=== PATIENT | female | born 1940 | race Caucasian/White ===

== ENCOUNTER 2016-12-08 13:33 | Inpatient (IN) | payer MEDICARE, OTHER ==
[~2016-12-08] VITALS: Ht 152.4 cm; Wt 67.8 kg
[2016-12-08 13:46] VITALS: BP 97/59; PULSE 98; RESP 14; O2SAT 94
[2016-12-08] MEDS ORDERED: 0.9% Sodium Chloride 1,000 ML IV ONE ×3 (14:24→20:00)
--- NOTE | 2016-12-08 14:27 | ED.REPORT ---
HPI-General Illness Date of Service Dec 08, 2016 ED Provider: History of Present Illness: 76-year-old female here for multiple medical complaints and a complex medical history. 3 days ago she ate a hamburger and then had lower abdominal pain after that. One day of vomiting and diarrhea. That is gone and is only nauseous now. Is able to tolerate some by mouth. She is also more confused, weak than usual. She was hardly able to walk earlier today. She has been dizzy. She cannot actually tell me what brought her in today, she is losing her words, she is forgetful. She has no reliable historian with her to verify this was new or not. She denies headaches, chest pain, shortness of breath, palpitations. Denies history of heart attack, strokes. She flew in from [place] 3 weeks ago and leaves in 3 days. She has had palpable fever. History of kidney failure about 1.5 yrs ago. Nursing Notes Stated Complaint: DIZZY,WEAK Chief Complaint: General Complaint Nursing Notes Reviewed: Yes Allergies: Coded Allergies: ibuprofen (Verified Allergy, Mild, rash, 12/08/16) Scheduled Atorvastatin Calcium (Atorvastatin Calcium) 10 Mg Tablet 10 MG PO HS Cephalexin (Cephalexin) 250 Mg Capsule 250 MG PO HS Diltiazem ER (Diltiazem ER) 360 Mg Capsule.er 360 MG PO QAM Donepezil (Donepezil) 10 Mg Tablet 10 MG PO HS Esomeprazole Magnesium (Esomeprazole Magnesium) 40 Mg Capsule.dr 40 MG PO QAM Gabapentin (Gabapentin) 600 Mg Tablet 600 MG PO Bid to TID Mirabegron ER (Myrbetriq) 50 Mg Tablet 50 MG PO HS Pramipexole Dihydrochloride (Pramipexole Dihydrochloride) 0.5 Mg Tablet 0.5 MG PO HS Prednisone (PredniSONE) 10 Mg Tablet 5 MG PO DAILYWM Trazodone (Trazodone) 50 Mg Tablet 50 MG PO HS Valsartan (Valsartan) 160 Mg Tablet 160 MG PO QAM Venlafaxine ER (Venlafaxine ER) 75 Mg Cap.er.24h 75 MG PO HS Scheduled PRN Cyclosporine (Restasis) 1 Each Droperette 1 DROP BOTH_EYES BID PRN PRN DRY EYES Loperamide (Loperamide) 2 Mg Capsule 2 MG PO QID PRN PRN For Diarrhea or Loose Stool Tramadol (Tramadol) 50 Mg Tablet 50 MG PO BID to TID PRN PRN For Pain General Time Seen by MD: 14:06 Chief Complaint Abdominal pain, Contusion, Diarrhea, Fever, Multip medical complaints, Not feeling well, Vomiting Hx Obtained From: Patient Arrived By: Walk-in Sudden in Onset?: Yes Onset Occurred: 3 days ago Symptom Duration: Intermittent Location: : Abdomen Severity: Current: Moderate Severity: Maximum: Moderate Recent Healthcare: No recent doctor visit Similar Sx Previous: No Past Medical History Past Medical History Notes: HTN, dementia, arthritis, insomnia. UTI Review of Systems Full Review of Systems Constitutional: Reports: Fatigue, Fever, Malaise, Weakness - generalized Eyes: Denies: Blurred bilateral Respiratory: Denies: Dyspnea on exertion, Non-productive cough, Pleuritic pain Cardiovascular: Denies: Chest pain, Dyspnea on exertion, Edema GI: Reports: Abdominal pain, Anorexia, Diarrhea, Nausea, Vomiting Female: Denies: Dysuria, Flank pain Musculoskeletal: Denies: Back pain, Extremity pain Neurologic: Reports: Dizziness, Problem walking, Weakness Complete sys rev & neg: except as marked. Physical Exam Vital Signs Vital Signs Date Time Temp Pulse Resp B/P Pulse Ox O2 Delivery O2 Flow Rate FiO2 12/08/16 18:35 39.5 119 21 108/58 95 Nasal Cannula 2 12/08/16 16:31 37.8 112 28 135/64 92 Room Air 12/08/16 13:46 37.6 98 14 97/59 94 Room Air Initial VS: Reviewed, Vital signs normal General/Constitutional: Awake, Alert, Well appearing Frequently forgets words, could not tell me why she is here today. Head / Eyes: Normocephalic, PERRL, EOMI, No periorbital swelling, No photophobia Right-sided nystagmus ENT: Airway patent, Mucous membranes moist, Pharynx NL Neck: Supple, No meningismus, Full range of motion, No swelling, Non-tender, No masses Respiratory / Chest: Breath sounds NL, No respiratory distress, No rales, No rhonchi, No wheezing Cardiovascular: Heart rate NL, Regular rhythm, Heart sounds NL, Cap refill not delayed, Peripheral circulation NL Abdomen: Atraumatic, Soft, No rebound, BS normoactive Tenderness/Guarding/Rebound: Positive: Tender LLQ... (Moderate), Tender RLQ... (Moderate), Tender periumbilical, Tender suprapubic Lower abdomen mildly distended. Skin: Color NL, Warm, Dry, Turgor NL Interpretation & Diagnostics Lab Results Interpretation Result Diagram: 12/08/16 1404 12/08/16 1404 Test 12/08/16 14:04 12/08/16 16:23 12/08/16 16:52 12/08/16 20:15 White Blood Count 34.7th/mm3 (3.8-10.1) Red Blood Count 3.88mil/mm3 (3.90-5.20) Hemoglobin 11.8g/dL (12.0-15.6) Hematocrit 35.5% (35.0-46.0) Mean Corpuscular Volume 91.5fL (81-100) Mean Corpuscular Hemoglobin 30.4pg (27.0-35.0) Mean Corpuscular Hemoglobin Concent 33.2% (32.0-37.0) Red Cell Distribution Width 12.7% (12.3-15.4) Platelet Count 294bil/L (150-400) Neutrophils (%) (Auto) 85% (40-74) Lymphocytes (%) (Auto) 7% (14-46) Monocytes (%) (Auto) 3% (4-12) Eosinophils (%) (Auto) 0% (0-5) Basophils (%) (Auto) 0% (0-3) Band Neutrophils % 5% (1-5) Sodium Level 128mEq/L (134-144) Potassium Level 4.5mEq/L (3.5-5.2) Chloride Level 89mEq/L (97-108) Carbon Dioxide Level 23mmol/L (18-29) Blood Urea Nitrogen 33mg/dL (8-27) Creatinine 2.25mg/dL (0.57-1.00) Estimat Glomerular Filtration Rate 30mL/min (>59) Glucose Level 113mg/dL (60-99) Calcium Level 8.4mg/dL (8.5-10.1) Total Bilirubin 0.6mg/dL (0.0-1.2) Aspartate Amino Transf (AST/SGOT) 25U/L (0-50) Alanine Aminotransferase (ALT/SGPT) 13U/L (0-32) Alkaline Phosphatase 74U/L (25-165) Troponin T < 0.010ug/L (0.0-0.011) Total Protein 6.6g/dL (6.4-8.4) Albumin 3.3g/dL (3.4-5.0) Lactic Acid Level 2.0mmol/L (0.4-2.0) Urine Color Yellow (YELLOW) Urine Appearance Clear (CLEAR,HAZY) Urine pH 5.5 (5.0-8.0) Urine Specific [place] 1.025 (1.003-1.035) Urine Protein 30mg/dL (NEG,TRACE) Urine Glucose (UA) Negativemg/dL (NEGATIVE) Urine Ketones Negativemg/dL (NEGATIVE) Urine Occult Blood Trace (NEGATIVE) Urine Nitrite Negative (NEGATIVE) Urine Bilirubin Negative (NEGATIVE) Urine Urobilinogen Normalmg/dL (NORMAL) Urine Leukocyte Esterase Negative (NEGATIVE) Urine RBC 0-2/hpf (0-2) Urine WBC 0-5/hpf (0-5) Urine Epithelial Cells Few/hpf (NONE-MOD) Urine Crystals None seen (NONE SEEN) Urine Bacteria Few/hpf (NONE-FEW) Urine Hyaline Casts None/lpf (NONE) Urine Granular Casts None seen (NONE SEEN) Urine Waxy Casts None seen (NONE SEEN) Urine Red Blood Cell Casts None seen (NONE SEEN) Urine White Blood Cell Casts None seen (NONE SEEN) Urine Mucus None seen (None Seen) Urine Trichomonas None seen (NONE SEEN) Urine Yeast None (NONE SEEN) Urinalysis Comment None Urine Culture Reflexed Not indicated Hold Purple Top Tube Received (Received) Hold [place] Top Tube Received (Received) X-Ray Interpretation Xray Interpretation: PROCEDURE: X-RAY CHEST ONE VIEW, PORTABLE ([id number]) INDICATIONS: altered mental status TECHNIQUE: One view of the chest was acquired. COMPARISON: None. FINDINGS: Surgical changes and devices: None. Lungs and pleura: No pleural effusions or pneumothorax. Lungs are clear. Mediastinum: Mediastinal contours appear normal. Heart size is normal. There appears to be aortic atherosclerosis. Bones and chest wall: No suspicious bony lesions. There is calcific tendinitis of the right shoulder. Overlying soft tissues appear unremarkable. IMPRESSION: Negative chest. No acute cardiopulmonary process is evident. CT Head Interpretation PROCEDURE: CT BRAIN WITHOUT CONTRAST ([id number]) INDICATIONS: confusion TECHNIQUE: Noncontrast 4.5 mm thick angled axial sections acquired from the foramen magnum to the vertex, with coronal reformats. COMPARISON: None. FINDINGS: Image quality: Diagnostic. Brain: There is no acute intra-axial or extra-axial hemorrhage. No extra-axial fluid collection is identified. There is no midline shift or mass effect. The orbits are grossly unremarkable. No large areas of diffusely decreased attenuation are evident within the brain to suggest diffuse cerebral edema. No focal parenchymal abnormality is identified. The ventricles are normal in size. There appears to be atrophy and/or encephalomalacia involving the bilateral occipital lobes (right greater than left). Bones: Calvarium and visualized facial bones are grossly intact. The imaged paranasal sinuses and mastoid air cells are clear. IMPRESSION: 1. No acute intracranial hemorrhage. 2. Mild occipital lobe atrophy is of uncertain significance. CT Abd / Pelvis Interpretation PROCEDURE: CT ABDOMEN AND PELVIS WITHOUT CONTRAST ([id number]) INDICATIONS: abd pain TECHNIQUE: After the administration of oral contrast, 5 mm thick sections acquired from the diaphragms to the symphysis. 5 mm coronal and sagittal reformats were performed. For radiation dose reduction, the following was used: automated exposure control, adjustment of mA and/or kV according to patient size. COMPARISON: None. FINDINGS: Image quality: Diagnostic. ABDOMEN: Lung bases: Mild scarring within the lung bases versus atelectasis is present. Heart size is normal. Solid organs: The liver and spleen are normal in size. The gallbladder is slightly prominent in size. No definite surrounding inflammation is appreciated. Calcifications within the left hepatic lobe are noted. The adrenals and pancreas appear to be within normal limits. There is a large probable cyst involving the left kidney measuring 8.7 cm (image 26, series 6), which is arising from the superior aspect of the kidney. Peritoneum and bowel: There is a small hiatal hernia. Thickening of the distal esophageal wall is present. The stomach and duodenum are unremarkable. The small bowel loops are nondilated. Diffuse thickening of the wall of the entire colon is present with mild inflammation within the adjacent mesentery. No bowel obstruction is evident. No free fluid, loculated fluid collection or free air is identified. Nodes and vessels: No retroperitoneal or mesenteric adenopathy by size criteria. Aorta and inferior vena cava are normal in size. Diffuse aortic atherosclerosis is present. The Miscellaneous: There is a small fat containing periumbilical hernia. PELVIS: Genitourinary: Bladder wall thickness is normal. The bladder is prominently distended. Miscellaneous: There is a fat containing small left inguinal hernia. No free fluid, loculated fluid collection or free air is evident. Bones: No suspicious bony lesions. Age-indeterminate compression deformities are noted involving the inferior T12 vertebral body with approximately 30% of vertical height loss and the superior L1 vertebral body with approximately 50% vertebral height loss. Retropulsion of the posterosuperior L1 vertebral body as evidenced by approximately 6 mm. Postoperative changes involving the spinous processes at L3 and L4 are present. Prominent multilevel degenerative changes of the thoracolumbar spine are noted. Chronic/healed left superior and inferior pubic rami fractures are noted. IMPRESSION: 1. Diffuse thickening of the wall of the colon with mild surrounding mesenteric edema/inflammation is suggestive of diffuse colitis and clinical correlation is recommended. 2. No bowel obstruction, abscess, or free fluid. 3. Prominent distention of the urinary bladder may be intentional on the part of the patient. Please correlate clinically. 4. Mild enlargement of the gallbladder without surrounding inflammation. The need for better evaluation utilizing a gallbladder ultrasound may be determined clinically. 5. Large left renal cyst. 6. Age-indeterminate T12 and L1 compression deformities. 7. Small hiatal hernia. Thickening of the distal esophageal wall probably is related to chronic reflux esophagitis. Please correlate clinically. Re-Eval/Medical Decision Med Decision/Clinical Course Dr. Alejandro Concepcion's at bedside examination. Will admit patient. Patient's stay was uneventful, heart rate and blood pressure stable. Was treated for fever with Tylenol. Discharge & Departure Shift Change Sign-Out Laboratory Evaluation: Lab evaluation discussed Imaging Studies: Imaging discussed Procedures: Results discussed Response to Therapy: Improved Primary Impression: Colitis Additional Impressions: Leukocytosis Leukocytosis type: unspecified Qualified Code: D72.829 - Elevated white blood cell count, unspecified Confusion Disposition: ADMITTED TO HOSPITAL Discharge Condition All VS Reviewed: Yes Condition: Stable EDSupervising Provider for APC: Ervin Catalan MD copies to: Ervin Catalan MD, Linnea K [facility] Dec 08, 2016 14:27
--- NOTE | 2016-12-08 15:24 | DRSVH ---
PROCEDURE: X-RAY CHEST ONE VIEW, PORTABLE ([id number]) INDICATIONS: altered mental status TECHNIQUE: One view of the chest was acquired. COMPARISON: None. FINDINGS: Surgical changes and devices: None. Lungs and pleura: No pleural effusions or pneumothorax. Lungs are clear. Mediastinum: Mediastinal contours appear normal. Heart size is normal. There appears to be aortic atherosclerosis. Bones and chest wall: No suspicious bony lesions. There is calcific tendinitis of the right shoulde r. Overlying soft tissues appear unremarkable. IMPRESSION: Negative chest. No acute cardiopulmonary process is evident. Dictated by: Cody Evans M.D. on 12/08/2016 at 14:22 Approved by: Cody Evans M.D. on 12/08/2016 at 14:22
[2016-12-08 15:28] LABS: BASOPHILS % (AUTO) 0 % (0-3); EOSINOPHILS % (AUTO) 0 % (0-5); MONOCYTES % (AUTO) 3 % (4-12); Mean Corpuscular Hemoglobin 30.4 pg (27.0-35.0); Mean Corpuscular Volume 91.5 fL (81-100); NEUTROPHILS % (AUTO) 85 % (40-74); Platelet Count 294 bil/L (150-400)
--- NOTE | 2016-12-08 16:19 | DRSVH ---
PROCEDURE: CT BRAIN WITHOUT CONTRAST ([id number]) INDICATIONS: confusion TECHNIQUE: Noncontrast 4.5 mm thick angled axial sections acquired from the foramen magnum to the vertex, with c oronal reformats. COMPARISON: None. FINDINGS: Image quality: Diagnostic. Brain: There is no acute intra-axial or extra-axial hemorrhage. No extra-axial fluid collection is i dentified. There is no midline shift or mass effect. The orbits are grossly unremarkable. No large areas of diffusely decreased attenuation are evident within the brain to suggest diffuse cer ebral edema. No focal parenchymal abnormality is identified. The ventricles are normal in size. There appears to be atrophy and/or encephalomalacia involving the bilateral occipital lobes (right greater than left). Bones: Calvarium and visualized facial bones are grossly intact. The imaged paranasal sinuses and m astoid air cells are clear. IMPRESSION: 1. No acute intracranial hemorrhage. 2. Mild occipital lobe atrophy is of uncertain significance. Dictated by: Cody Evans M.D. on 12/08/2016 at 15:16 Approved by: Cody Evans M.D. on 12/08/2016 at 15:18
--- NOTE | 2016-12-08 16:29 | DRSVH ---
PROCEDURE: CT ABDOMEN AND PELVIS WITHOUT CONTRAST ([id number]) INDICATIONS: abd pain TECHNIQUE: After the administration of oral contrast, 5 mm thick sections acquired from the diaphragms to the sy mphysis. 5 mm coronal and sagittal reformats were performed. For radiation dose reduction, the foll owing was used: automated exposure control, adjustment of mA and/or kV according to patient size. COMPARISON: None. FINDINGS: Image quality: Diagnostic. ABDOMEN: Lung bases: Mild scarring within the lung bases versus atelectasis is present. Heart size is normal. Solid organs: The liver and spleen are normal in size. The gallbladder is slightly prominent in size . No definite surrounding inflammation is appreciated. Calcifications within the left hepatic lobe are noted. The adrenals and pancreas appear to be within normal limits. There is a large probable c yst involving the left kidney measuring 8.7 cm (image 26, series 6), which is arising from the superi or aspect of the kidney. Peritoneum and bowel: There is a small hiatal hernia. Thickening of the distal esophageal wall is pr esent. The stomach and duodenum are unremarkable. The small bowel loops are nondilated. Diffuse th ickening of the wall of the entire colon is present with mild inflammation within the adjacent mesent kori. No bowel obstruction is evident. No free fluid, loculated fluid collection or free air is iden tified. Nodes and vessels: No retroperitoneal or mesenteric adenopathy by size criteria. Aorta and inferior vena cava are normal in size. Diffuse aortic atherosclerosis is present. The Miscellaneous: There is a small fat containing periumbilical hernia. PELVIS: Genitourinary: Bladder wall thickness is normal. The bladder is prominently distended. Miscellaneous: There is a fat containing small left inguinal hernia. No free fluid, loculated fluid collection or free air is evident. Bones: No suspicious bony lesions. Age-indeterminate compression deformities are noted involving th e inferior T12 vertebral body with approximately 30% of vertical height loss and the superior L1 vert ebral body with approximately 50% vertebral height loss. Retropulsion of the posterosuperior L1 vert ebral body as evidenced by approximately 6 mm. Postoperative changes involving the spinous processes at L3 and L4 are present. Prominent multilevel degenerative changes of the thoracolumbar spine are noted. Chronic/healed left superior and inferior pubic rami fractures are noted. IMPRESSION: 1. Diffuse thickening of the wall of the colon with mild surrounding mesenteric edema/inflammation i s suggestive of diffuse colitis and clinical correlation is recommended. 2. No bowel obstruction, abscess, or free fluid. 3. Prominent distention of the urinary bladder may be intentional on the part of the patient. Pleas e correlate clinically. 4. Mild enlargement of the gallbladder without surrounding inflammation. The need for better evalua tion utilizing a gallbladder ultrasound may be determined clinically. 5. Large left renal cyst. 6. Age-indeterminate T12 and L1 compression deformities. 7. Small hiatal hernia. Thickening of the distal esophageal wall probably is related to chronic ref lux esophagitis. Please correlate clinically. Dictated by: Cody Evans M.D. on 12/08/2016 at 15:18 Approved by: Cody Evans M.D. on 12/08/2016 at 15:28
[2016-12-08 16:31] VITALS: BP 135/64; PULSE 112; RESP 28; O2SAT 92
[2016-12-08 17:19] LABS: APPEARANCE,URINE CLEAR (CLEAR,HAZY); COLOR,URINE YELLOW (YELLOW); OCCULT BLOOD,URINE TRACE (NEGATIVE); PH,URINE 5.5 (5.0-8.0); UROBILINOGEN,URINE NORMAL (NORMAL)
[2016-12-08] MEDS ORDERED: Piperacillin-Tazo 3.375 Gm Inj 3.375 GM in Dextrose 5% Minibag Plus 50 ML IV ONE (18:10)
[2016-12-08 18:35] VITALS: BP 108/58; PULSE 119; RESP 21; O2SAT 95
[2016-12-08] MEDS ORDERED: Acetaminophen IV 1,000 MG in IV Premix 1 EACH IV ONE (18:50)
[2016-12-08] MEDS ORDERED: ATOR10TA66 PO (18:58)
[2016-12-08] MEDS ORDERED: MIRA50TA PO (18:58)
[2016-12-08] MEDS ORDERED: PRAM0.5T10 PO (18:58)
[2016-12-08] MEDS ORDERED: VALS160T23 PO (18:58)
[2016-12-08] MEDS ORDERED: ESOM40CA53 PO (18:58)
[2016-12-08] MEDS ORDERED: LOPE2CAP PO (18:58)
[2016-12-08] MEDS ORDERED: TRAM50TA2 PO (18:58)
[2016-12-08] MEDS ORDERED: GABA600T2 PO (18:58)
[2016-12-08] MEDS ORDERED: CEPH250C PO (18:58)
[2016-12-08] MEDS ORDERED: DONE10TA42 PO (18:58)
[2016-12-08] MEDS ORDERED: VENL75CA95 PO (18:58)
[2016-12-08] MEDS ORDERED: TRAZ-115 PO (18:58)
[2016-12-08] MEDS ORDERED: DILT360C30 PO (18:58)
[2016-12-08] MEDS ORDERED: Alum-Mag Hydrox-Simeth 30 mL Suspension PO PRN ×2 (19:20→19:55)
[2016-12-08] MEDS ORDERED: Vancomycin 100 mg/mL Oral Solution PO ONE (19:20)
[2016-12-08] MEDS ORDERED: Ondansetron 2 mg/mL 2 mL Inj IVPUSH PRN ×2 (19:20→19:55)
[2016-12-08] MEDS ORDERED: Polyethylene Glycol (PEG) 17 Gm Powder PO PRN (19:55)
[2016-12-08] MEDS ORDERED: PRE10 PO (20:19)
[2016-12-08] MEDS ORDERED: CYCL1DRO BOTH_EYES (20:21)
[2016-12-08 20:29] VITALS: BP 114/55; PULSE 108; RESP 23; O2SAT 98
[2016-12-08 21:40] VITALS: BP 137/72; PULSE 107; RESP 18; O2SAT 93
--- NOTE | 2016-12-08 21:40 | NUR ---
Arrival to [facility] via wheelchair. Sister and brother in law accompany her. Placed on contact enteric precautions to RO cdiff, family aware and advised to not spend the night in case of infection. Pt comfortable in bed, dentures and hearing aid removed. Eyeglasses and cell phone nearby, call light within reach. Pt is AO and able to answer admit questions.
--- NOTE | 2016-12-08 21:48 | PCM.HPMED ---
Subjective Date of Service Dec 08, 2016 Primary Provider: Admitting Physician: Junior Romero MD Primary Care Physician: Other,Physician Attending Physician: Junior Romero MD Chief Complaint: Abdominal pain History of Present Illness: 76-year-old female with dementia and recurrent UTIs on Keflex, who is visiting from [facility] emergency department due to 3 days of worsening abdominal pain located over the left lower quadrant. Patient states that the pain started last Wednesday with diarrhea, nausea and vomiting that lasted only 1 day. Patient had eaten at a barbecue earlier that day and feels that is connected. Since that time the patient has become more lethargic, weak, and complained of dizziness. Patient also had fever, chills, anorexia, worsening abdominal pain. Patient denies any change in urinary symptoms, and also denies any urinary discharge. The patient is unable to give a full detailed history about her past UTIs and the need for Keflex. Patient denies any history of C. difficile CT scan was positive for colitis and the patient has a white count of 34,000. Lactic acid was upper limits of normal and creatinine was elevated at 2.2 (do not have a reliable baseline) Review of Systems: Complete review of systems performed; pertinent positives and negatives per history of present illness, all other systems reviewed and are negative Allergies Coded Allergies: ibuprofen (Verified Allergy, Mild, rash, 12/08/16) Home Medications Atorvastatin Calcium (Atorvastatin Calcium) 10 Mg Tablet 10 MG PO HS Cephalexin (Cephalexin) 250 Mg Capsule 250 MG PO HS Diltiazem ER (Diltiazem ER) 360 Mg Capsule.er 360 MG PO QAM Donepezil (Donepezil) 10 Mg Tablet 10 MG PO HS Esomeprazole Magnesium (Esomeprazole Magnesium) 40 Mg Capsule.dr 40 MG PO QAM Gabapentin (Gabapentin) 600 Mg Tablet 600 MG PO Bid to TID Mirabegron ER (Myrbetriq) 50 Mg Tablet 50 MG PO HS Pramipexole Dihydrochloride (Pramipexole Dihydrochloride) 0.5 Mg Tablet 0.5 MG PO HS Prednisone (PredniSONE) 10 Mg Tablet 5 MG PO DAILYWM Trazodone (Trazodone) 50 Mg Tablet 50 MG PO HS Valsartan (Valsartan) 160 Mg Tablet 160 MG PO QAM Venlafaxine ER (Venlafaxine ER) 75 Mg Cap.er.24h 75 MG PO HS Cyclosporine (Restasis) 1 Each Droperette 1 DROP BOTH_EYES BID PRN PRN DRY EYES Loperamide (Loperamide) 2 Mg Capsule 2 MG PO QID PRN PRN For Diarrhea or Loose Stool Tramadol (Tramadol) 50 Mg Tablet 50 MG PO BID to TID PRN PRN For Pain PMH Dementia recurrent UTI on prophylactic Keflex Hypertension GERD Restless leg syndrome Insomnia Impression Chronic loose stool Surgical History None reported Family History Mother and father of [place] Father also had bladder cancer Social History Hx Alcohol Use: No Hx Substance Use: No Hx Tobacco Use: No Smoking Status: Never Smoker Additional Information Visiting from [place] Exam Vital Signs Vital Sign - Last Date Time Temp Pulse Resp B/P Pulse Ox O2 Delivery O2 Flow Rate FiO2 12/08/16 20:29 37.8 108 23 114/55 98 Nasal Cannula 2 Exam General: Age-appropriate female in no acute distress HEENT: PERRLA, EOMI, nonicteric, membranes dry Lymph: No lymphadenopathy Cardio: Regular rate and rhythm no murmurs rubs or gallops Respiratory: CTA bilaterally, no wheezes, no crackles Abdomen: Mild guarding, positive bowel sounds, tender diffusely although worse in the left lower quadrant, no distention Extremities: No edema, 4/5 strength, pulses intact Psych: Dementia but able to participate in conversation Neuro: CN II through XII grossly intact, sensation intact throughout Skin: No rash Lab and Diagnostics Result Diagram: 12/08/16 1404 12/08/16 1404 X-Rays, CTs and MRIs Brain CT 1. No acute intracranial hemorrhage. 2. Mild occipital lobe atrophy is of uncertain significance. Dictated by: Cody Evans M.D. on 12/08/2016 at 15:[address] 1. Diffuse thickening of the wall of the colon with mild surrounding mesenteric edema/inflammation is suggestive of diffuse colitis and clinical correlation is recommended. 2. No bowel obstruction, abscess, or free fluid. 3. Prominent distention of the urinary bladder may be intentional on the part of the patient. Please correlate clinically. 4. Mild enlargement of the gallbladder without surrounding inflammation. The need for better evaluation utilizing a gallbladder ultrasound may be determined clinically. 5. Large left renal cyst. 6. Age-indeterminate T12 and L1 compression deformities. 7. Small hiatal hernia. Thickening of the distal esophageal wall probably is related to chronic reflux esophagitis. Please correlate clinically. Dictated by: Cody Evans M.D. on 12/08/2016 at 15:18 Chest x-ray IMPRESSION: Negative chest. No acute cardiopulmonary process is evident. Dictated by: Cody Evans M.D. on 12/08/2016 at 14:22 Assessment & Plan 76-year-old female with history of dementia and recurrent UTIs on prophylactic Keflex who presented to emergency department with lower left quadrant abdominal pain has been worsening since last Wednesday with associated fever, anorexia, and previous nausea and vomiting. Sepsis secondary to colitis, concern for C. difficile; present admission; ongoing -CT demonstrated colitis; prophylactic Keflex puts patient at higher risk of having C. difficile -Patient also recently had a barbecue, so concern for possible Escherichia coli and HUS -Patient given 3 L of in the ED -Started on oral vancomycin -Started on Zosyn -Stool PCR pending -Zosyn ordered, but will repeat labs, and hopefully a PCR back tonight. -If white count is persistent after treatment with fluid will go ahead and fully treated for C. difficile and hold the Zosyn -Blood cultures ordered on admission; were not obtained prior to initiation of antibiotics in the ED -Hold Keflex Acute on unknown chronicity kidney failure; present admission; ongoing -Patient appears dry although ratio of 33/2.5 does not confirm this -Concern for HUS although there is no thrombocytopenia -Recheck blood work -Fluids as above -Avoid NSAIDs Mild anion gap acidosis -Lactic acid 2.0; will repeat -Sodium 128, unknown etiology, however patient appears dry -Fluid management as above for sepsis -We will recheck in a.m., if sodium decreases consider SIADH due to medications or sepsis Dementia; present admission; stable -Continue home meds -As the patient is from out of town recommend consult social work and case management Hypertension; present on admission; stable -Continue home meds Disposition: Patient is being admitted to inpatient status with expected length of stay greater than two midnights due to to severity of presentation, duration of treatment, and risks of adverse events disposition Full code Pain Evaluation: Adequate Pain Control VTE Prophylaxis: Sub-Q Heparin (Unfractionated) Resuscitation Status: CPR: Attempt Resuscitation Attending Statement The patient was seen and examined together with Dr. Polanco on 12/08 and I agree with the history, exam and plan as outlined in the note above. Isrrael Polanco DO Dec 08, 2016 21:48 Junior Romero MD Dec 09, 2016 00:08
[2016-12-08 22:31] LABS: Mean Corpuscular Hemoglobin 29.9 pg (27.0-35.0); Platelet Count 277 bil/L (150-400)
[2016-12-08 23:01] LABS: NEUTROPHILS % (AUTO) 77 % (40-74)
[2016-12-08 23:02] LABS: BASOPHILS % (AUTO) 0 % (0-3); EOSINOPHILS % (AUTO) 1 % (0-5); MONOCYTES % (AUTO) 2 % (4-12)
[2016-12-09] MEDS: Heparin 5,000 Unit/mL Inj SUBQ SCH ×3 (00:13→17:17)
[2016-12-09] MEDS ORDERED: Piperacillin-Tazo 3.375 Gm Inj 3.375 GM in Dextrose 5% Minibag Plus 50 ML IV SCH (00:30)
[2016-12-09] MEDS: 0.9% Sodium Chloride 1,000 ML IV SCH ×3 (04:41→17:15)
[2016-12-09 05:29] VITALS: BP 136/75; PULSE 98; RESP 18; O2SAT 94
[2016-12-09 05:50] LABS: Mean Corpuscular Hemoglobin 29.7 pg (27.0-35.0); Mean Corpuscular Volume 89.8 fL (81-100); Platelet Count 290 bil/L (150-400)
[2016-12-09 06:19] LABS: Phosphorus 2.5 mg/dL (2.5-4.9)
[2016-12-09] MEDS ORDERED: Pantoprazole 40 mg ER24 Tablet PO SCH (06:30)
[2016-12-09 08:42] LABS: BASOPHILS % (AUTO) 0 % (0-3); EOSINOPHILS % (AUTO) 0 % (0-5); MONOCYTES % (AUTO) 9 % (4-12); NEUTROPHILS % (AUTO) 59 % (40-74)
[2016-12-09 09:09] VITALS: BP 134/76; PULSE 115; RESP 18; O2SAT 93
[2016-12-09] MEDS: Diltiazem CD 180 mg ER24 Capsule PO SCH (10:07)
[2016-12-09] MEDS: Vancomycin 250 mg Oral Capsule PO SCH ×3 (10:08→22:00)
[2016-12-09 11:39] VITALS: BP 150/83; PULSE 109; RESP 20; O2SAT 93
--- NOTE | 2016-12-09 14:01 | NUR ---
Social Work- Initial Assessment/ Multidisciplinary Rounds Data: See Initial Assessment and Advance Directive Intervention for additional information. Pt discussed in rounds. Pt is CDIFF positive. No social work needs identified in rounds. Pt is not ready for discharge at this time. Pt is a 76 year old admitted 12/08/16 for colitis, hyponatremia, leukocytosis per H&P. Pt's insurance is [employer] and [place] [employer]. Pt's PCP is Ervin Palomino in [place]. Pt's readmit risk score is not listed at this time. SW met with pt at bedside regarding discharge plan, SW role explained. Pt alert and oriented x3. Pt's capacity for self-care assessed. Pt resides in [place] in a home alone. Pt was visiting her sister for three weeks when she was admitted to [facility]. Pt is independent with ADLs and self-care. Pt uses a cane at baseline but has a walker available for use. Pt drives. Pt has history with PT and SNF services in [place]. Pt has no DPOA on file but a copy is in [place]. Pt's four daughters are joint DPOA. SW provided Discharge planning Checklist and requested that pt contact [facility] if needs identified. SW provided phone number and plan on whiteboard. Pt to discharge to her sister's house in [place] with her sister to transport via POV. Pt agreeable to plan. SW will continue to follow. Assessment: Pt who is independent at baseline. Plan: Pt to discharge to her sister's house in [place] with her sister to transport via POV. Pt agreeable to plan. No discharge needs identified. SW will continue to follow. LUCY Arndt Addendum: 12/09/16 at 1406 by KIA SERRANO Amended: Links added.
--- NOTE | 2016-12-09 16:58 | PCM.PNMED ---
Subjective Date of Service Dec 09, 2016 Subjective Reports continued abdominal pain and diarrhea. Denies any nausea, vomiting. Exam Vital Signs Vital Sign - Last Date Time Temp Pulse Resp B/P Pulse Ox O2 Delivery O2 Flow Rate FiO2 12/09/16 11:39 36.8 109 20 150/83 93 Room Air 12/08/16 20:29 2 Intake and Output 12/08/16 12/08/16 12/09/16 Cumulative From/Thru 15:00 23:00 07:00 12/08/16 13:46 - 12/09/16 05:29 Intake Total 2000 ml 1393 ml 3393 ml Output Total 550 ml 550 ml Balance 2000 ml 843 ml 2843 ml Intake Oral 350 ml 350 ml IV Total 2000 ml 1043 ml 3043 ml Output Urine Total 400 ml 400 ml Stool Total 150 ml 150 ml # Bowel Movements 1 1 General: Alert, Cooperative, No Acute Distress Head: Normal Eyes: Scleral Anicteric Nose: Mucous Membr Moist/[place] Mouth: Mucous Membr Moist/[place] Neck: Supple Chest & Lungs: Chest Wall Normal, Clear to auscultation & percussion Cardiovascular: Regular Rate/Rhythm Pulses: NL carotid, radial, femoral, DP, PT Abdomen: Tender, Non-distended, Normoactive bowel tones, Soft Extremities: No cyanosis/clubbing/edma bilat Neurological: Grossly Neurologically Intact, Normal Speech IVs and Medications Medications Reviewed: Medications were reviewed in detail Lab and Diagnostics Result Diagram: 12/09/16 0509 12/09/16 0509 X-Rays, CTs and MRIs Brain CT 1. No acute intracranial hemorrhage. 2. Mild occipital lobe atrophy is of uncertain significance. Dictated by: Cody Evans M.D. on 12/08/2016 at 15:[address] 1. Diffuse thickening of the wall of the colon with mild surrounding mesenteric edema/inflammation is suggestive of diffuse colitis and clinical correlation is recommended. 2. No bowel obstruction, abscess, or free fluid. 3. Prominent distention of the urinary bladder may be intentional on the part of the patient. Please correlate clinically. 4. Mild enlargement of the gallbladder without surrounding inflammation. The need for better evaluation utilizing a gallbladder ultrasound may be determined clinically. 5. Large left renal cyst. 6. Age-indeterminate T12 and L1 compression deformities. 7. Small hiatal hernia. Thickening of the distal esophageal wall probably is related to chronic reflux esophagitis. Please correlate clinically. Dictated by: Cody Evans M.D. on 12/08/2016 at 15:18 Chest x-ray IMPRESSION: Negative chest. No acute cardiopulmonary process is evident. Dictated by: Cody Evans M.D. on 12/08/2016 at 14:22 Assessment & Plan 76-year-old female with history of dementia and recurrent UTIs on prophylactic Keflex who presented to emergency department with lower left quadrant abdominal pain has been worsening since last Wednesday with associated fever, anorexia, and previous nausea and vomiting. # Acute sepsis secondary to C. Diff colitis; present admission; ongoing - Sepsis criteria met with leukocytosis, tachycardia, acute kidney injury - Started on oral vancomycin - Stop Zosyn - Continue with IV fluid resuscitation - Continue with supportive care # Acute C. Diff colitis. Present on admission. Ongoing - Sever infection given TABBY on presentation - PO Vancomycin - Followup repeat labs in am # Acute on unknown chronicity kidney failure; present on admission. Improving - Avoid nephrotoxic meds - IV fluids as noted above - Followup repeat labs in am # Mild anion gap acidosis, present on admission - Lactic acidosis improved with IV fluid - Followup # Mild chronic dementia; present admission; stable -Continue home Donepezil # Chronic hypertension; present on admission; stable -Continue home meds Disposition: likely 3-4 days pending improved diarrhea and colitis. VTE Prophylaxis: Sub-Q Heparin (Unfractionated) Resuscitation Status: CPR: Attempt Resuscitation Ant Dumont Dec 09, 2016 16:58 Ant Dumont Dec 09, 2016 16:58
[2016-12-09 20:21] VITALS: BP 137/80; PULSE 99; RESP 17; O2SAT 96
[2016-12-09] MEDS: Venlafaxine XR 75 mg ER24 Capsule PO SCH (22:00)
[2016-12-10] MEDS: Heparin 5,000 Unit/mL Inj SUBQ SCH ×3 (00:36→17:30)
--- NOTE | 2016-12-10 01:11 | NUR ---
Loose BM Pt having loose incontinent BM. Maintaining clear liquid diet with no nausea or vomiting. PO meds tolerated. IV infusing NS at 100 ml/h to maintain hydration- PO fluids pushed but pt is lethargic and forgets to drink. Pt wakes up disoriented to time. No SOB or chest pain, minimal abdominal discomfort and cramping. Care continues
[2016-12-10] MEDS: Vancomycin 250 mg Oral Capsule PO SCH ×4 (02:43→21:45)
[2016-12-10 05:36] LABS: INR 1.18 ratio
[2016-12-10 05:50] LABS: Magnesium 1.9 mg/dL (1.6-2.6)
[2016-12-10 05:53] VITALS: BP 157/88; PULSE 91; RESP 17; O2SAT 97
[2016-12-10] MEDS: 0.9% Sodium Chloride 1,000 ML IV SCH ×3 (05:59→21:54)
[2016-12-10 06:02] LABS: BASOPHILS % (AUTO) 1 % (0-3); EOSINOPHILS % (AUTO) 2 % (0-5); MONOCYTES % (AUTO) 6 % (4-12); Mean Corpuscular Hemoglobin 29.8 pg (27.0-35.0); NEUTROPHILS % (AUTO) 84 % (40-74); Platelet Count 298 bil/L (150-400)
[2016-12-10 10:00] VITALS: BP 151/85; PULSE 87; RESP 16; O2SAT 98
[2016-12-10] MEDS: Diltiazem CD 180 mg ER24 Capsule PO SCH (10:01)
[2016-12-10 13:00] VITALS: BP 159/80; PULSE 83; RESP 18; O2SAT 96
--- NOTE | 2016-12-10 13:47 | NUR ---
Social Work-Multidisciplinary Rounds Pt discussed in rounds. Pt is anticipated to remain hospitalized for 3-4 more days. Pt has continued abdominal pain and vomiting. No social work needs identified in rounds. Pt anticipated to discharge to her sisters house in before returning to [place]. SW will continue to follow. LUCY Arndt
--- NOTE | 2016-12-10 14:46 | PCM.PNMED ---
Subjective Date of Service Dec 10, 2016 Subjective Reports continued abdominal pain and diarrhea. Denies any nausea, vomiting. Exam Vital Signs Vital Sign - Last Date Time Temp Pulse Resp B/P Pulse Ox O2 Delivery O2 Flow Rate FiO2 12/10/16 13:00 36.7 83 18 159/80 96 Room Air 12/08/16 20:29 2 Intake and Output 12/09/16 12/09/16 12/10/16 Cumulative From/Thru 15:00 23:00 07:00 12/08/16 13:46 - 12/10/16 06:39 Intake Total 1228 ml 1700 ml 6321 ml Output Total 1 ml 800 ml 1351 ml Balance 1227 ml 900 ml 4970 ml Intake Oral 694 ml 600 ml 1644 ml IV Total 534 ml 1100 ml 4677 ml Output Urine Total 200 ml 600 ml Stool Total 1 ml 600 ml 751 ml # Voids 1 1 # Bowel Movements 1 Exam General: Alert, Cooperative, No Acute Distress Head: Normal Eyes: Scleral Anicteric Nose: Mucous Membr Moist/[place] Mouth: Mucous Membr Moist/[place] Neck: Supple Chest & Lungs: Chest Wall Normal, Clear to auscultation bilat Cardiovascular: Regular Rate/Rhythm Pulses: NL DP, PT Abdomen: Tender, Non-distended, Normoactive bowel tones, Soft Extremities: No cyanosis/clubbing/edema bilat Neurological: Grossly Neurologically Intact, Normal Speech IVs and Medications Medications Reviewed: Medications were reviewed in detail Lab and Diagnostics Result Diagram: 12/10/165 12/10/16 045 X-Rays, CTs and MRIs Brain CT 1. No acute intracranial hemorrhage. 2. Mild occipital lobe atrophy is of uncertain significance. Dictated by: Cody Evans M.D. on 12/08/2016 at 15:[address] 1. Diffuse thickening of the wall of the colon with mild surrounding mesenteric edema/inflammation is suggestive of diffuse colitis and clinical correlation is recommended. 2. No bowel obstruction, abscess, or free fluid. 3. Prominent distention of the urinary bladder may be intentional on the part of the patient. Please correlate clinically. 4. Mild enlargement of the gallbladder without surrounding inflammation. The need for better evaluation utilizing a gallbladder ultrasound may be determined clinically. 5. Large left renal cyst. 6. Age-indeterminate T12 and L1 compression deformities. 7. Small hiatal hernia. Thickening of the distal esophageal wall probably is related to chronic reflux esophagitis. Please correlate clinically. Dictated by: Cody Evans M.D. on 12/08/2016 at 15:18 Chest x-ray IMPRESSION: Negative chest. No acute cardiopulmonary process is evident. Dictated by: Cody Evans M.D. on 12/08/2016 at 14:22 Assessment & Plan 76-year-old female with history of dementia and recurrent UTIs on prophylactic Keflex who presented to emergency department with lower left quadrant abdominal pain has been worsening since last Wednesday with associated fever, anorexia, and previous nausea and vomiting. # Acute sepsis secondary to C. Diff colitis; present admission. Clinically resolved - Sepsis criteria met with leukocytosis, tachycardia, acute kidney injury - Started on oral vancomycin - Stopped Zosyn on 12/09 - Continue with IV fluid resuscitation - Continue with supportive care # Acute C. Diff colitis. Present on admission. Ongoing - Sever infection given TABBY on presentation - PO Vancomycin started on 12/09/16 # Acute on unknown chronicity kidney failure; present on admission. Improving - Avoid nephrotoxic meds - IV fluids as noted above - Followup repeat labs in am # Mild anion gap acidosis, present on admission - Lactic acidosis improved with IV fluid - Followup # Mild chronic dementia; present admission; stable - Continue home Donepezil # Chronic hypertension; present on admission; stable - Continue home meds Disposition: likely 3-4 days pending improved diarrhea and colitis. VTE Prophylaxis: Sub-Q Heparin (Unfractionated) Resuscitation Status: CPR: Attempt Resuscitation Ant Dumont Dec 10, 2016 14:46
--- NOTE | 2016-12-10 18:21 | NUR ---
Abdominal pain/tenderness Pt. has mild (2/10) abdominal pain today, but she states she is feeling better and has more strength than yesterday. Still having watery green stools. C-diff precautions in place.
[2016-12-10 20:17] VITALS: BP 132/76; PULSE 90; RESP 17; O2SAT 96
[2016-12-10] MEDS ORDERED: Tolterodine ER 2 mg ER24 Capsule PO SCH (21:00)
[2016-12-10] MEDS: Venlafaxine XR 75 mg ER24 Capsule PO SCH (21:45)
[2016-12-11] MEDS: Heparin 5,000 Unit/mL Inj SUBQ SCH ×3 (01:15→17:28)
[2016-12-11] MEDS: Vancomycin 250 mg Oral Capsule PO SCH ×4 (02:57→19:38)
[2016-12-11] MEDS: 0.9% Sodium Chloride 1,000 ML IV SCH ×2 (03:51→14:51)
[2016-12-11 04:59] VITALS: BP 142/71; PULSE 66; RESP 17; O2SAT 96
--- NOTE | 2016-12-11 05:00 | NUR ---
activity pt has complained of only mild abdominal pain, denies the need for any pain medication. she has gotten up and walked to bathroom SBA with fWW and appears strong and steady on her feet. she says her strength has improved. she continues to have loose stool but reports it is less watery and less frequent then before. she has been resting comfortably in bed. hourly rounding continues.
[2016-12-11 05:57] LABS: Mean Corpuscular Hemoglobin 29.9 pg (27.0-35.0)
[2016-12-11 05:58] LABS: BASOPHILS % (AUTO) 0.2 % (0-3); MONOCYTES % (AUTO) 7.8 % (4-12); NEUTROPHILS % (AUTO) 70.1 % (40-74); Platelet Count 306 bil/L (150-400)
[2016-12-11] MEDS ORDERED: Potassium Chloride 20 mEq SR Tablet PO ONE (08:05)
--- NOTE | 2016-12-11 08:56 | NUR ---
NUTRITION ASSESSMENT: ASSESS: Pt is a 76yo F admitted for colitis and hyponatremia. She is C.Diff +. Pt has been on CL diet x3 days. PO intake has been fair at ~25%. Pt reports mild abdomen pain. PMHX: Dementia, UTI, HTN, RLS, GERD LABS: Reviewed. K 3.4, Cl 110, CO2 17, Ca 7.5, Alb 2.7 MEDS: Reviewed. GI: C.Diff +, diarrhea SKIN: no issues noted CURRENT WTS: 70.2kg, BMI 30.2kg/m2 DIET: CL, PO 25% EST. NEEDS: Kcals: 1545-1755kcal/day (22-25kcal/kg) Pro: 70-85g/day (1.0-1.2g/kg) NUTRITION DIAGNOSIS: 1.) Inadequate oral intake related to altered GI function as evidenced by current CL diet order NUTRITION INTERVENTION: 1.) Recommend advance diet when medically appropriate 2.) Will add Ensure CL on all trays to help increase kcal/pro/fluid intake while on CL Diet MONITOR / EVAL: Diet advc, PO, wt, gi, labs, POC. Will continue to monitor per high nutrition risk guidelines
[2016-12-11 09:00] VITALS: BP 140/75; PULSE 71; RESP 18; O2SAT 97
[2016-12-11] MEDS: Diltiazem CD 180 mg ER24 Capsule PO SCH (09:06)
--- NOTE | 2016-12-11 13:32 | PCM.PNMED ---
Subjective Date of Service Dec 11, 2016 Subjective Reports continued diarrhea. Denies any nausea, vomiting. Abdominal pain almost resolved. Exam Vital Signs Vital Sign - Last Date Time Temp Pulse Resp B/P Pulse Ox O2 Delivery O2 Flow Rate FiO2 12/11/16 09:00 36.3 71 18 140/75 97 Room Air 12/08/16 20:29 2 Intake and Output 12/10/16 12/10/16 12/11/16 Cumulative From/Thru 15:00 23:00 07:00 12/08/16 13:46 - 12/11/16 05:30 Intake Total 2001 ml 1795 ml 69229 ml Output Total 1820 ml 850 ml 4021 ml Balance 181 ml 945 ml 6096 ml Intake Oral 1030 ml 718 ml 3392 ml IV Total 971 ml 1077 ml 6725 ml Output Urine Total 800 ml 850 ml 2250 ml Stool Total 1020 ml 1771 ml # Voids 1 2 # Bowel Movements 0 1 Exam General: Alert, Cooperative, No Acute Distress Head: Normal Eyes: Scleral Anicteric Nose: Mucous Membr Moist/[place] Mouth: Mucous Membr Moist/[place] Neck: Supple Chest & Lungs: Chest Wall Normal, Clear to auscultation bilat Cardiovascular: Regular Rate/Rhythm Pulses: NL DP, PT Abdomen: Tender, Non-distended, Normoactive bowel tones, Soft Extremities: No cyanosis/clubbing/edema bilat Neurological: Grossly Neurologically Intact, Normal Speech IVs and Medications Medications Reviewed: Medications were reviewed in detail Lab and Diagnostics Result Diagram: 12/11/1652212/11/16522 X-Rays, CTs and MRIs Brain CT 1. No acute intracranial hemorrhage. 2. Mild occipital lobe atrophy is of uncertain significance. Dictated by: Cody Evans M.D. on 12/08/2016 at 15:[address] 1. Diffuse thickening of the wall of the colon with mild surrounding mesenteric edema/inflammation is suggestive of diffuse colitis and clinical correlation is recommended. 2. No bowel obstruction, abscess, or free fluid. 3. Prominent distention of the urinary bladder may be intentional on the part of the patient. Please correlate clinically. 4. Mild enlargement of the gallbladder without surrounding inflammation. The need for better evaluation utilizing a gallbladder ultrasound may be determined clinically. 5. Large left renal cyst. 6. Age-indeterminate T12 and L1 compression deformities. 7. Small hiatal hernia. Thickening of the distal esophageal wall probably is related to chronic reflux esophagitis. Please correlate clinically. Dictated by: Cody Evans M.D. on 12/08/2016 at 15:18 Chest x-ray IMPRESSION: Negative chest. No acute cardiopulmonary process is evident. Dictated by: Cody Evans M.D. on 12/08/2016 at 14:22 Assessment & Plan 76-year-old female with history of dementia and recurrent UTIs on prophylactic Keflex who presented to emergency department with lower left quadrant abdominal pain has been worsening since last Wednesday with associated fever, anorexia, and previous nausea and vomiting. # Acute sepsis secondary to C. Diff colitis; present admission. Clinically resolved - Sepsis criteria met with leukocytosis, tachycardia, acute kidney injury - Started on oral vancomycin - Stopped Zosyn on 12/09 - Continue with IV fluid resuscitation - Continue with supportive care # Acute C. Diff colitis. Present on admission. Ongoing but slowly improving - Sever infection given TABBY on presentation - PO Vancomycin started on 12/09/16 # Acute hypokalemia. Not present on admission. - Replete and followup # Acute on unknown chronicity kidney failure; present on admission. Resolved - Avoid nephrotoxic meds - IV fluids as noted above - Followup repeat labs in am # Mild anion gap acidosis, present on admission - Lactic acidosis improved with IV fluid - Followup # Mild chronic dementia; present admission; stable - Continue home Donepezil # Chronic hypertension; present on admission; stable - Continue home meds Disposition: likely 2-3 days pending improved diarrhea and colitis- VTE Prophylaxis: Sub-Q Heparin (Unfractionated) Resuscitation Status: CPR: Attempt Resuscitation Ant Dumont Dec 11, 2016 13:32
[2016-12-11 18:12] VITALS: BP 146/88; PULSE 75; RESP 18; O2SAT 99
--- NOTE | 2016-12-11 18:33 | NUR ---
Pain Pt had no c/o pain or abdominal tenderness this am. This afternoon Pt c/o of mild pain 2/10 with abdominal tenderness. Up with standby assist to the bathroom, uses IV pole during ambulation. Continues on NS at 100ml/hour, infusing into the left upper arm. Tolerating full liquid diet w/coke and jello. No c/o of nausea or vomiting. Denies pain.
[2016-12-11] MEDS: Venlafaxine XR 75 mg ER24 Capsule PO SCH (19:38)
[2016-12-11 19:40] VITALS: BP 167/73; PULSE 70; RESP 17; O2SAT 97
[2016-12-12] MEDS: 0.9% Sodium Chloride 1,000 ML IV SCH ×3 (00:33→22:21)
[2016-12-12] MEDS: Heparin 5,000 Unit/mL Inj SUBQ SCH ×3 (01:26→16:21)
[2016-12-12] MEDS: Vancomycin 250 mg Oral Capsule PO SCH ×4 (01:26→21:35)
--- NOTE | 2016-12-12 04:22 | NUR ---
Activity Patient ambulates well with SBA, sat in chair at bedside. Denies pain at this time, c/o loose stool. Family members visited wore gowns and washed hands appropriately. Care continues.
[2016-12-12 05:06] VITALS: BP 151/70; PULSE 72; RESP 17; O2SAT 96
[2016-12-12 05:43] LABS: BASOPHILS % (AUTO) 0.4 % (0-3); MONOCYTES % (AUTO) 9.3 % (4-12); Mean Corpuscular Hemoglobin 29.7 pg (27.0-35.0); Mean Corpuscular Volume 87.7 fL (81-100); NEUTROPHILS % (AUTO) 55.8 % (40-74); Platelet Count 331 bil/L (150-400)
[2016-12-12 05:59] LABS: Magnesium 1.8 mg/dL (1.6-2.6)
[2016-12-12] MEDS: Diltiazem CD 180 mg ER24 Capsule PO SCH (09:17)
--- NOTE | 2016-12-12 13:16 | NUR ---
DIARRHEA P-Patient still experiencing diarrhea. I- Teaching done on C-diff and antibiotics. E- Continue treatment plan, isolation, and monitor labs.
--- NOTE | 2016-12-12 15:36 | PCM.PNMED ---
Subjective Date of Service Dec 12, 2016 Subjective Reports diarrhea but improving. Denies any nausea, vomiting. Abdominal pain resolved. Exam Vital Signs Vital Sign - Last Date Time Temp Pulse Resp B/P Pulse Ox O2 Delivery O2 Flow Rate FiO2 12/12/16 05:06 36.5 72 17 151/70 96 Room Air 12/08/16 20:29 2 Intake and Output 12/11/16 12/11/16 12/12/16 Cumulative From/Thru 15:00 23:00 07:00 12/08/16 13:46 - 12/12/16 06:20 Intake Total 2800 ml 2443 ml 22651 ml Output Total 800 ml 1350 ml 6171 ml Balance 2000 ml 1093 ml 9189 ml Intake Oral 1636 ml 1274 ml 6302 ml IV Total 1164 ml 1169 ml 9058 ml Output Urine Total 800 ml 1350 ml 4400 ml Stool Total 1771 ml # Voids 2 4 # Bowel Movements 3 1 5 Exam General: Alert, Cooperative, No Acute Distress Head: Normal Eyes: Scleral Anicteric Nose: Mucous Membr Moist/[place] Mouth: Mucous Membr Moist/[place] Neck: Supple Chest & Lungs: Chest Wall Normal, Clear to auscultation bilat Cardiovascular: Regular Rate/Rhythm Pulses: NL DP, PT Abdomen: Tender, Non-distended, Normoactive bowel tones, Soft Extremities: No cyanosis/clubbing/edema bilat Neurological: Grossly Neurologically Intact, Normal Speech IVs and Medications Medications Reviewed: Medications were reviewed in detail Lab and Diagnostics Result Diagram: 12/12/16 0440 12/12/16 0440 X-Rays, CTs and MRIs Brain CT 1. No acute intracranial hemorrhage. 2. Mild occipital lobe atrophy is of uncertain significance. Dictated by: Cody Evans M.D. on 12/08/2016 at 15:[address] 1. Diffuse thickening of the wall of the colon with mild surrounding mesenteric edema/inflammation is suggestive of diffuse colitis and clinical correlation is recommended. 2. No bowel obstruction, abscess, or free fluid. 3. Prominent distention of the urinary bladder may be intentional on the part of the patient. Please correlate clinically. 4. Mild enlargement of the gallbladder without surrounding inflammation. The need for better evaluation utilizing a gallbladder ultrasound may be determined clinically. 5. Large left renal cyst. 6. Age-indeterminate T12 and L1 compression deformities. 7. Small hiatal hernia. Thickening of the distal esophageal wall probably is related to chronic reflux esophagitis. Please correlate clinically. Dictated by: Cdoy Evans M.D. on 12/08/2016 at 15:18 Chest x-ray IMPRESSION: Negative chest. No acute cardiopulmonary process is evident. Dictated by: Cody Evans M.D. on 12/08/2016 at 14:22 Assessment & Plan 76-year-old female with history of dementia and recurrent UTIs on prophylactic Keflex who presented to emergency department with lower left quadrant abdominal pain has been worsening since last Wednesday with associated fever, anorexia, and previous nausea and vomiting. # Acute C. Diff colitis. Present on admission. Ongoing but slowly improving - Sever infection given TABBY on presentation - PO Vancomycin started on 12/09/16 # Acute sepsis secondary to C. Diff colitis; present admission. Clinically resolved - Sepsis criteria met with leukocytosis, tachycardia, acute kidney injury - Started on oral vancomycin - Stopped Zosyn on 12/09 - Continue with IV fluid resuscitation - Continue with supportive care # Acute hypokalemia. Not present on admission. - Resolved after repletion - Followup # Acute on unknown chronicity kidney failure; present on admission. Resolved - Avoid nephrotoxic meds - IV fluids as noted above - Followup repeat labs in am # Mild anion gap acidosis, present on admission - Lactic acidosis improved with IV fluid - Followup # Mild chronic dementia; present admission; stable - Continue home Donepezil # Chronic hypertension; present on admission; stable - Continue home meds Disposition: likely 1-2 days pending improved diarrhea and colitis- VTE Prophylaxis: Sub-Q Heparin (Unfractionated) Resuscitation Status: CPR: Attempt Resuscitation Ant Dumont Dec 12, 2016 15:36
[2016-12-12] MEDS ORDERED: Potassium Chloride 20 mEq SR Tablet PO ONE (15:40)
[2016-12-12 16:04] VITALS: BP 147/86; PULSE 69; RESP 18; O2SAT 98
[2016-12-12 19:52] VITALS: BP 166/82; PULSE 68; RESP 18; O2SAT 99
[2016-12-12] MEDS: Venlafaxine XR 75 mg ER24 Capsule PO SCH (21:35)
[2016-12-13] MEDS: Heparin 5,000 Unit/mL Inj SUBQ SCH ×3 (01:28→17:10)
[2016-12-13 01:50] VITALS: BP 165/81; PULSE 74; RESP 16; O2SAT 96
[2016-12-13] MEDS: Vancomycin 250 mg Oral Capsule PO SCH ×3 (03:19→14:49)
[2016-12-13 03:21] VITALS: BP 145/76; PULSE 74
--- NOTE | 2016-12-13 03:25 | NUR ---
Activity Pt had small amount of diarrhea X2 this shift, is OOB with SBA/IV pole to BR and tolerates well, no dizziness. BP elevates at night: 166/82 and 165/81, rechecked at 0330 and came down to 145/76. Receiving BP meds at 0830. Pt has no c/o pain/N/V. Other VSS. NS running @ 100.
[2016-12-13 06:13] LABS: BASOPHILS % (AUTO) 0.3 % (0-3); EOSINOPHILS % (AUTO) 2.7 % (0-5); MONOCYTES % (AUTO) 9.7 % (4-12); Mean Corpuscular Hemoglobin 29.2 pg (27.0-35.0); Mean Corpuscular Volume 86.5 fL (81-100); NEUTROPHILS % (AUTO) 64.7 % (40-74); Platelet Count 373 bil/L (150-400)
[2016-12-13 06:15] VITALS: BP 159/84; PULSE 77; RESP 20; O2SAT 96
[2016-12-13] MEDS: Diltiazem CD 180 mg ER24 Capsule PO SCH (09:51)
[2016-12-13] MEDS: 0.9% Sodium Chloride 1,000 ML IV SCH (09:54)
[2016-12-13 09:56] VITALS: BP 176/86; PULSE 76; RESP 18; O2SAT 98
--- NOTE | 2016-12-13 14:36 | NUR ---
Social Work: Continued Discharge Planning/Multidisciplinary Rounds D: EMR reviewed. Pt is on day 5 of hospitalization. Per multidisciplinary rounds, pt is not medically stable for discharge and anticipated to discharge back to her sisters home when medically stable. Pt anticipated to discharge in 2-3 days. No SW needs identified in multidisciplinary rounds. No MD orders received. SW confirmed with MD that pt is not likely to have any discharge planning needs at time of discharge. SW will continue to follow for needs. A: Pt who is independent at baseline. P: Pt anticipated to discharge with sister to transport via POV. Pt lives in [place] and will stay with sister until ready to return to [place]. No SW needs identified in multidisciplinary rounds. No MD orders received. SW confirmed with MD that pt is not likely to have any discharge planning needs at time of discharge. SW will continue to follow for needs. LUCY Ulrich
--- NOTE | 2016-12-13 15:47 | PCM.PNMED ---
Subjective Date of Service Dec 13, 2016 Subjective Reports diarrhea but improving. Denies any nausea, vomiting. Abdominal pain resolved. Exam Vital Signs Vital Sign - Last Date Time Temp Pulse Resp B/P Pulse Ox O2 Delivery O2 Flow Rate FiO2 12/13/16 09:56 36.6 76 18 176/86 98 12/13/16 06:15 Room Air 12/08/16 20:29 2 Intake and Output 12/12/16 12/12/16 12/13/16 Cumulative From/Thru 15:00 23:00 07:00 12/08/16 13:46 - 12/13/16 06:15 Intake Total 2290 ml 850 ml 55933 ml Output Total 2400 ml 1350 ml 9921 ml Balance -110 ml -500 ml 8579 ml Intake Oral 1190 ml 850 ml 8342 ml IV Total 1100 ml 12713 ml Output Urine Total 2400 ml 1350 ml 8150 ml Stool Total 1771 ml # Voids 4 # Bowel Movements 4 3 12 Exam General: Alert, Cooperative, No Acute Distress Head: Normal Eyes: Scleral Anicteric Nose: Mucous Membr Moist/[place] Mouth: Mucous Membr Moist/[place] Neck: Supple Chest & Lungs: Chest Wall Normal, Clear to auscultation bilat Cardiovascular: Regular Rate/Rhythm Pulses: NL DP, PT Abdomen: Tender, Non-distended, Normoactive bowel tones, Soft Extremities: No cyanosis/clubbing/edema bilat Neurological: Grossly Neurologically Intact, Normal Speech IVs and Medications Medications Reviewed: Medications were reviewed in detail Lab and Diagnostics Result Diagram: 12/13/16 0555 12/13/16 0555 X-Rays, CTs and MRIs Brain CT 1. No acute intracranial hemorrhage. 2. Mild occipital lobe atrophy is of uncertain significance. Dictated by: Cody Evans M.D. on 12/08/2016 at 15:[address] 1. Diffuse thickening of the wall of the colon with mild surrounding mesenteric edema/inflammation is suggestive of diffuse colitis and clinical correlation is recommended. 2. No bowel obstruction, abscess, or free fluid. 3. Prominent distention of the urinary bladder may be intentional on the part of the patient. Please correlate clinically. 4. Mild enlargement of the gallbladder without surrounding inflammation. The need for better evaluation utilizing a gallbladder ultrasound may be determined clinically. 5. Large left renal cyst. 6. Age-indeterminate T12 and L1 compression deformities. 7. Small hiatal hernia. Thickening of the distal esophageal wall probably is related to chronic reflux esophagitis. Please correlate clinically. Dictated by: Cody Evans M.D. on 12/08/2016 at 15:18 Chest x-ray IMPRESSION: Negative chest. No acute cardiopulmonary process is evident. Dictated by: Cody Evans M.D. on 12/08/2016 at 14:22 Assessment & Plan 76-year-old female with history of dementia and recurrent UTIs on prophylactic Keflex who presented to emergency department with lower left quadrant abdominal pain has been worsening since last Wednesday with associated fever, anorexia, and previous nausea and vomiting. # Acute C. Diff colitis. Present on admission. Ongoing but slowly improving - Sever infection given TABBY on presentation - PO Vancomycin started on 12/09/16 # Acute sepsis secondary to C. Diff colitis; present admission. Clinically resolved - Sepsis criteria met with leukocytosis, tachycardia, acute kidney injury - Started on oral vancomycin - Stopped Zosyn on 12/09 - Continue with IV fluid resuscitation - Continue with supportive care # Acute hypokalemia. Not present on admission. - Resolved after repletion - Followup # Acute on unknown chronicity kidney failure; present on admission. Resolved - Avoid nephrotoxic meds - IV fluids as noted above - Followup repeat labs in am # Mild anion gap acidosis, present on admission - Lactic acidosis improved with IV fluid - Followup # Mild chronic dementia; present admission; stable - Continue home Donepezil # Chronic hypertension; present on admission; stable - Continue home meds Disposition: likely 1-2 days pending improved diarrhea and colitis- VTE Prophylaxis: Sub-Q Heparin (Unfractionated) Resuscitation Status: CPR: Attempt Resuscitation Ant Dumont Dec 13, 2016 15:47
--- NOTE | 2016-12-13 16:17 | NUR ---
Diet Pt tolerating clear liquids well with breakfast. She expresses concern about "getting sick" after eating if we advanced her diet but then denies any previous nausea/emesis associated with eating. Diet advanced to Full liquids for lunch which pt tolerated well and had no nausea afterwards. Diet will be advanced to general for dinner.
[2016-12-13 20:06] VITALS: BP 133/65; PULSE 77; RESP 16; O2SAT 98
[2016-12-13] MEDS: Venlafaxine XR 75 mg ER24 Capsule PO SCH (21:28)
[2016-12-13] MEDS: Vancomycin 125 mg Oral Capsule PO SCH (21:28)
[2016-12-14] MEDS: Heparin 5,000 Unit/mL Inj SUBQ SCH ×3 (00:31→17:52)
[2016-12-14] MEDS: Vancomycin 125 mg Oral Capsule PO SCH ×4 (03:19→22:36)
--- NOTE | 2016-12-14 03:39 | NUR ---
diet/GI/activity pt ate a general diet meal for dinner and stated she tolerated it well. she had no nausea afterwards. she has had one small loose BM so far this shift, she has been walking to the bathroom unassisted and is steady on her feet. she has no complaints of abdominal pain or discomfort. pt resting comfortably in bed at this time. care continues.
[2016-12-14 05:54] VITALS: BP 151/77; PULSE 85; RESP 16; O2SAT 96
[2016-12-14 06:48] LABS: Mean Corpuscular Hemoglobin 29.4 pg (27.0-35.0); Mean Corpuscular Volume 86.6 fL (81-100)
[2016-12-14 07:25] VITALS: BP 148/78; PULSE 77; RESP 18; O2SAT 96
[2016-12-14] MEDS: Diltiazem CD 180 mg ER24 Capsule PO SCH (09:21)
[2016-12-14 11:59] VITALS: BP 132/82; PULSE 84; RESP 18; O2SAT 97
--- NOTE | 2016-12-14 14:50 | NUR ---
NUTRITION FOLLOW UP: ASSESS: 76 yo F admitted for sepsis secondary to C.diff colitis. Diet advanced to general with good PO intake. PMHX: Dementia, UTI, HTN, RLS, GERD LABS: Reviewed. (12/13): Ca 8.2 MEDS: Reviewed. [place]. GI: 2 BM 12/14. C.Diff +, diarrhea SKIN: no issues noted. CURRENT WT: 68.0 kg, BMI 29.3 kg/m2, Admit wt: 70.2 kg. DIET: General. PO intake 100%. ESTIMATED NEEDS: Calories: 1163-8252 kcal/day (22-25 kcal/kg BW) Protein: 70-85 g/day (1.0-1.2 g/kg BW) NUTRITION DIAGNOSIS: 1.) Inadequate oral intake related to altered GI function as evidenced by current CL diet order---IMPROVED. Diet advanced to general. NUTRITION INTERVENTION: 1.) Continue current diet as ordered. MONITOR/EVALUATE: PO intake, GI, labs, nutrition status. Follow per moderate nutrition risk guidelines
--- NOTE | 2016-12-14 16:16 | PCM.PNMED ---
Subjective Date of Service Dec 14, 2016 Subjective Reports diarrhea improving. Denies any nausea, vomiting. Abdominal pain resolved. Exam Vital Signs Vital Sign - Last Date Time Temp Pulse Resp B/P Pulse Ox O2 Delivery O2 Flow Rate FiO2 12/14/16 11:59 36.6 84 18 132/82 97 12/14/16 07:25 Room Air 12/08/16 20:29 2 Intake and Output 12/13/16 12/13/16 12/14/16 Cumulative From/Thru 15:00 23:00 07:00 12/08/16 13:46 - 12/14/16 05:54 Intake Total 1266 ml 637 ml 270 ml 64587 ml Output Total 500 ml 1350 ml 91790 ml Balance 1266 ml 137 ml -1080 ml 8902 ml Intake Oral 637 ml 270 ml 9249 ml IV Total 1266 ml 95781 ml Output Urine Total 500 ml 1350 ml 01902 ml Stool Total 1771 ml # Voids 4 # Bowel Movements 2 14 Exam General: Alert, Cooperative, No Acute Distress Head: Normal Eyes: Scleral Anicteric Nose: Mucous Membr Moist/[place] Mouth: Mucous Membr Moist/[place] Neck: Supple Chest & Lungs: Chest Wall Normal, Clear to auscultation bilat Cardiovascular: Regular Rate/Rhythm Pulses: NL DP, PT Abdomen: Tender, Non-distended, Normoactive bowel tones, Soft Extremities: No cyanosis/clubbing/edema bilat Neurological: Grossly Neurologically Intact, Normal Speech IVs and Medications Medications Reviewed: Medications were reviewed in detail Lab and Diagnostics Result Diagram: 12/14/16 0444 12/13/16 0555 X-Rays, CTs and MRIs Brain CT 1. No acute intracranial hemorrhage. 2. Mild occipital lobe atrophy is of uncertain significance. Dictated by: Cody Evans M.D. on 12/08/2016 at 15:[address] 1. Diffuse thickening of the wall of the colon with mild surrounding mesenteric edema/inflammation is suggestive of diffuse colitis and clinical correlation is recommended. 2. No bowel obstruction, abscess, or free fluid. 3. Prominent distention of the urinary bladder may be intentional on the part of the patient. Please correlate clinically. 4. Mild enlargement of the gallbladder without surrounding inflammation. The need for better evaluation utilizing a gallbladder ultrasound may be determined clinically. 5. Large left renal cyst. 6. Age-indeterminate T12 and L1 compression deformities. 7. Small hiatal hernia. Thickening of the distal esophageal wall probably is related to chronic reflux esophagitis. Please correlate clinically. Dictated by: Cody Evans M.D. on 12/08/2016 at 15:18 Chest x-ray IMPRESSION: Negative chest. No acute cardiopulmonary process is evident. Dictated by: Cody Evans M.D. on 12/08/2016 at 14:22 Assessment & Plan 76-year-old female with history of dementia and recurrent UTIs on prophylactic Keflex who presented to emergency department with lower left quadrant abdominal pain has been worsening since last Wednesday with associated fever, anorexia, and previous nausea and vomiting. # Acute C. Diff colitis. Present on admission. Ongoing but slowly improving - Sever infection given TABBY on presentation - PO Vancomycin started on 12/09/16 - Leukocytosis was improving but seems to be rising again. Followup to ensure does not get worse # Acute sepsis secondary to C. Diff colitis; present admission. Clinically resolved - Sepsis criteria met with leukocytosis, tachycardia, acute kidney injury - Started on oral vancomycin - Stopped Zosyn on 12/09 - Stopped IV fluid on 12/13/16 given increased PO intake - Continue with supportive care # Acute hypokalemia. Not present on admission. - Resolved after repletion - Followup # Acute on unknown chronicity kidney failure; present on admission. Resolved - Avoid nephrotoxic meds - IV fluids as noted above - Followup # Mild anion gap acidosis, present on admission - Lactic acidosis resolved with IV fluid # Mild chronic dementia; present admission; stable - Continue home Donepezil # Chronic hypertension; present on admission; stable - Continue home meds Disposition: Likely home tomorrow if WBC remain stable or improve. VTE Prophylaxis: Sub-Q Heparin (Unfractionated) Resuscitation Status: CPR: Attempt Resuscitation Ant Dumont Dec 14, 2016 16:16
[2016-12-14 21:04] VITALS: BP 144/71; PULSE 80; RESP 18; O2SAT 98
[2016-12-14] MEDS: Venlafaxine XR 75 mg ER24 Capsule PO SCH (22:35)
[2016-12-15] MEDS: Heparin 5,000 Unit/mL Inj SUBQ SCH ×2 (01:53→08:30)
--- NOTE | 2016-12-15 02:58 | NUR ---
activity pt resting comfortably in bed this shift. no complaints of abdominal pain or discomfort, no nausea/vomiting. tolerating general diet. pt states diarrhea has improved and she has 2 BMs so far this shift, loose but small. she has no complaints at this time. care continues.
[2016-12-15] MEDS: Vancomycin 125 mg Oral Capsule PO SCH ×2 (03:47→09:11)
[2016-12-15 05:27] LABS: BASOPHILS % (AUTO) 0.4 % (0-3); EOSINOPHILS % (AUTO) 3.7 % (0-5); MONOCYTES % (AUTO) 9.9 % (4-12); Mean Corpuscular Hemoglobin 29.6 pg (27.0-35.0); Mean Corpuscular Volume 86.1 fL (81-100); NEUTROPHILS % (AUTO) 50.5 % (40-74); Platelet Count 424 bil/L (150-400)
[2016-12-15 06:38] LABS: Magnesium 1.6 mg/dL (1.6-2.6)
[2016-12-15 07:17] VITALS: BP 143/81; PULSE 73; RESP 18; O2SAT 97
[2016-12-15] MEDS: Diltiazem CD 180 mg ER24 Capsule PO SCH (09:10)
--- NOTE | 2016-12-15 11:07 | PCM.DIMED ---
Discharge Instructions Date of Service Dec 15, 2016 Dates of Hospitalization Dec 08, 2016 at 20:23 Discharge Diagnosis Discharge Diagnosis # Acute C. Diff colitis. Present on admission. Ongoing but slowly improving # Acute sepsis secondary to C. Diff colitis; present admission. Clinically resolved # Acute hypokalemia. Not present on admission. # Acute on unknown chronicity kidney failure; present on admission. Resolved # Mild anion gap acidosis, present on admission # Mild chronic dementia; present admission; stable # Chronic hypertension; present on admission; stable Patient Instructions Patient Instructions You were hospitalized to due to C. difficile colitis. Please continue metronidazole 500 mg by mouth 3 times a day for 5 more days. Follow-up with PCP in: 1 week Ezequiel Ahmadi MD Dec 15, 2016 11:07
[2016-12-15] MEDS ORDERED: METR500T19 PO (11:09)
[2016-12-15] MEDS ORDERED: Magnesium Sulf 2 Gm/50mL Water 2 GM in IV Premix 1 EACH IV ONE (11:10)
[2016-12-15] MEDS ORDERED: Potassium Chloride 20 mEq SR Tablet PO ONE (11:10)
--- NOTE | 2016-12-15 12:05 | NUR ---
Social Work- Discharge/Multidisciplinary Rounds Data: EMR reviewed. Pt is on day 7 of hospitalization for colitis, hyponatremia, leukocytosis per H&P. Pt discussed in multidisciplinary rounds, pt is medically stable for discharge. Discharge orders are active. Pt to discharge to her sisters home via POV, then to return to [place]. Pt is independent at baseline. No discharge needs. Assessment: Pt who is independent at baseline. Plan: Pt to discharge to her sisters home via POV, then to return to [place]. Pt is independent at baseline. No discharge needs. Opal Guerrero MSW
[2016-12-15 12:13] VITALS: BP 130/83; PULSE 73; RESP 18; O2SAT 98
--- NOTE | 2016-12-15 12:58 | NUR ---
DISCHARGE Patient discharged at 1230, left with sister who will drive her home. Patient denies pain, nausea, and shortness of breath. IV catheter removed intact, follow up instructions reviewed, care notes of Flagyl , and C-diff provided to patient. Medications reviewed and new RX given to patient . she verbalized understanding. Medical records phone number given and patient told to call tomorrow to get records (signed consent done).
--- NOTE | 2016-12-15 13:14 | PCM.DC.MED ---
Discharge Summary Date of Service Dec 15, 2016 Dates of Hospitalization Date of Hospital Admission Dec 08, 2016 at 20:23 Date of Discharge: Dec 15, 2016 Providers: Admitting Physician: Junior Romero MD Primary Care Physician: Other,Physician Attending Physician: Ezequiel Ahmadi MD Diagnosis at Time of Discharge Diagnosis at Time of Discharge # Acute C. Diff colitis. Present on admission. Ongoing but slowly improving # Acute sepsis secondary to C. Diff colitis; present admission. Clinically resolved # Acute hypokalemia. Not present on admission. # Acute on unknown chronicity kidney failure; present on admission. Resolved # Mild anion gap acidosis, present on admission # Mild chronic dementia; present admission; stable # Chronic hypertension; present on admission; stable Procedures XRay, CTs & MRIs Brain CT 1. No acute intracranial hemorrhage. 2. Mild occipital lobe atrophy is of uncertain significance. Dictated by: Cody Evans M.D. on 12/08/2016 at 15:[address] 1. Diffuse thickening of the wall of the colon with mild surrounding mesenteric edema/inflammation is suggestive of diffuse colitis and clinical correlation is recommended. 2. No bowel obstruction, abscess, or free fluid. 3. Prominent distention of the urinary bladder may be intentional on the part of the patient. Please correlate clinically. 4. Mild enlargement of the gallbladder without surrounding inflammation. The need for better evaluation utilizing a gallbladder ultrasound may be determined clinically. 5. Large left renal cyst. 6. Age-indeterminate T12 and L1 compression deformities. 7. Small hiatal hernia. Thickening of the distal esophageal wall probably is related to chronic reflux esophagitis. Please correlate clinically. Dictated by: Cody Evans M.D. on 12/08/2016 at 15:18 Chest x-ray IMPRESSION: Negative chest. No acute cardiopulmonary process is evident. Dictated by: Cody Evans M.D. on 12/08/2016 at 14:22 Brief History per HPI 76-year-old female with dementia and recurrent UTIs on Keflex, who is visiting from [place] presents emergency department due to 3 days of worsening abdominal pain located over the left lower quadrant. Patient states that the pain started last Wednesday with diarrhea, nausea and vomiting that lasted only 1 day. Patient had eaten at a barbecue earlier that day and feels that is connected. Since that time the patient has become more lethargic, weak, and complained of dizziness. Patient also had fever, chills, anorexia, worsening abdominal pain. Patient denies any change in urinary symptoms, and also denies any urinary discharge. The patient is unable to give a full detailed history about her past UTIs and the need for Keflex. Patient denies any history of C. difficile CT scan was positive for colitis and the patient has a white count of 34,000. Lactic acid was upper limits of normal and creatinine was elevated at 2.2 (do not have a reliable baseline) Hospital Course 76-year-old female with history of dementia and recurrent UTIs on prophylactic Keflex who presented to emergency department with lower left quadrant abdominal pain has been worsening since last Wednesday with associated fever, anorexia, and previous nausea and vomiting. # Acute C. Diff colitis. Present on admission. Ongoing but slowly improving - Sever infection given TABBY on presentation - PO Vancomycin started on 12/09/16 - Leukocytosis improving -Discharged on Flagyl for 5 more days to complete a ten-day course -Diarrhea almost resolved # Acute sepsis secondary to C. Diff colitis; present admission. Clinically resolved - Sepsis criteria met with leukocytosis, tachycardia, acute kidney injury - Started on oral vancomycin - Stopped Zosyn on 12/09 - Continue with supportive care -Discharged on Flagyl for 5 more days to complete a ten-day course # Acute hypokalemia. Not present on admission. - Resolved after repletion # Acute on unknown chronicity kidney failure; present on admission. Resolved - Avoid nephrotoxic meds - IV fluids as noted above - Followup # Mild anion gap acidosis, present on admission - Lactic acidosis resolved with IV fluid # Mild chronic dementia; present admission; stable - Continue home Donepezil # Chronic hypertension; present on admission; stable - Continue home meds Disposition: Discharge home Condition on discharge stable Exam Vital Signs (Last) Date Time Temp Pulse Resp B/P Pulse Ox O2 Delivery O2 Flow Rate FiO2 12/15/16 12:13 36.7 73 18 130/83 98 Room Air Exam General: Alert, Cooperative, No Acute Distress Head: Normal Eyes: Scleral Anicteric Nose: Mucous Membr Moist/[place] Mouth: Mucous Membr Moist/[place] Neck: Supple Chest & Lungs: Chest Wall Normal, Clear to auscultation bilat Cardiovascular: Regular Rate/Rhythm Pulses: NL DP, PT Abdomen: Tender, Non-distended, Normoactive bowel tones, Soft Extremities: No cyanosis/clubbing/edema bilat Neurological: Grossly Neurologically Intact, Normal Speech Test 12/08/16 14:04 12/08/16 16:52 12/08/16 20:15 12/08/16 22:18 Troponin T < 0.010ug/L (0.0-0.011) Urine Color Yellow (YELLOW) Urine Appearance Clear (CLEAR,HAZY) Urine pH 5.5 (5.0-8.0) Urine Specific [place] 1.025 (1.003-1.035) Urine Protein 30mg/dL (NEG,TRACE) Urine Glucose (UA) Negativemg/dL (NEGATIVE) Urine Ketones Negativemg/dL (NEGATIVE) Urine Occult Blood Trace (NEGATIVE) Urine Nitrite Negative (NEGATIVE) Urine Bilirubin Negative (NEGATIVE) Urine Urobilinogen Normalmg/dL (NORMAL) Urine Leukocyte Esterase Negative (NEGATIVE) Urine RBC 0-2/hpf (0-2) Urine WBC 0-5/hpf (0-5) Urine Epithelial Cells Few/hpf (NONE-MOD) Urine Crystals None seen (NONE SEEN) Urine Bacteria Few/hpf (NONE-FEW) Urine Hyaline Casts None/lpf (NONE) Urine Granular Casts None seen (NONE SEEN) Urine Waxy Casts None seen (NONE SEEN) Urine Red Blood Cell Casts None seen (NONE SEEN) Urine White Blood Cell Casts None seen (NONE SEEN) Urine Mucus None seen (None Seen) Urine Trichomonas None seen (NONE SEEN) Urine Yeast None (NONE SEEN) Urinalysis Comment None Urine Culture Reflexed Not indicated Hold Purple Top Tube Received (Received) Hematology Comments Wbc Test 12/09/16 00:54 12/09/16 05:09 12/09/16 12:00 12/10/16 04:55 Hold [place] Top Tube Received (Received) Phosphorus Level 2.5mg/dL (2.5-4.9) Total Bilirubin 0.7mg/dL (0.0-1.2) Aspartate Amino Transf (AST/SGOT) 18U/L (0-50) Alanine Aminotransferase (ALT/SGPT) 11U/L (0-32) Alkaline Phosphatase 79U/L (25-165) Total Protein 5.2g/dL (6.4-8.4) Albumin 2.7g/dL (3.4-5.0) Lactic Acid Level 0.9mmol/L (0.4-2.0) Prothrombin Time 12.7sec (8.1-12.5) Prothromb Time International Ratio 1.18ratio Activated Partial Thromboplast Time 34.3sec (22.8-33.0) Test 12/11/16 05:23 12/15/16 04:56 Band Neutrophils % 2% (1-5) White Blood Count 12.0th/mm3 (3.8-10.1) Red Blood Count 3.88mil/mm3 (3.90-5.20) Hemoglobin 11.5g/dL (12.0-15.6) Hematocrit 33.4% (35.0-46.0) Mean Corpuscular Volume 86.1fL (81-100) Mean Corpuscular Hemoglobin 29.6pg (27.0-35.0) Mean Corpuscular Hemoglobin Concent 34.4% (32.0-37.0) Red Cell Distribution Width 13.3% (12.3-15.4) Platelet Count 424bil/L (150-400) Neutrophils (%) (Auto) 50.5% (40-74) Lymphocytes (%) (Auto) 33.0% (14-46) Monocytes (%) (Auto) 9.9% (4-12) Eosinophils (%) (Auto) 3.7% (0-5) Basophils (%) (Auto) 0.4% (0-3) Sodium Level 141mEq/L (134-144) Potassium Level 3.6mEq/L (3.5-5.2) Chloride Level 105mEq/L (97-108) Carbon Dioxide Level 21mmol/L (18-29) Blood Urea Nitrogen 9mg/dL (8-27) Creatinine 1.01mg/dL (0.57-1.00) Estimat Glomerular Filtration Rate 76mL/min (>59) Glucose Level 113mg/dL (60-99) Calcium Level 8.5mg/dL (8.5-10.1) Magnesium Level 1.6mg/dL (1.6-2.6) Procalcitonin 0.13ng/mL (0.00-0.08) Discharge Medications Discharge Medications Atorvastatin Calcium (Atorvastatin Calcium) 10 Mg Tablet 10 MG PO HS (Reported) Diltiazem ER (Diltiazem ER) 360 Mg Capsule.er 360 MG PO QAM (Reported) Donepezil (Donepezil) 10 Mg Tablet 10 MG PO HS (Reported) Esomeprazole Magnesium (Esomeprazole Magnesium) 40 Mg Capsule.dr 40 MG PO QAM ( Reported) Gabapentin (Gabapentin) 600 Mg Tablet 600 MG PO Bid to TID (Reported) Metronidazole (Metronidazole) 500 Mg Tablet 500 MG PO TID Prescribed by: EZEQUIEL AHMADI MD Mirabegron ER (Myrbetriq) 50 Mg Tablet 50 MG PO HS (Reported) Pramipexole Dihydrochloride (Pramipexole Dihydrochloride) 0.5 Mg Tablet 0.5 MG PO HS (Reported) Prednisone (PredniSONE) 10 Mg Tablet 5 MG PO DAILYWM (Reported) Trazodone (Trazodone) 50 Mg Tablet 50 MG PO HS (Reported) Valsartan (Valsartan) 160 Mg Tablet 160 MG PO QAM (Reported) Venlafaxine ER (Venlafaxine ER) 75 Mg Cap.er.24h 75 MG PO HS (Reported) As needed Cyclosporine (Restasis) 1 Each [place]pe[place] 1 DROP BOTH_EYES BID PRN PRN DRY EYES (Reported) Loperamide (Loperamide) 2 Mg Capsule 2 MG PO QID PRN PRN For Diarrhea or Loose Stool (Reported) Tramadol (Tramadol) 50 Mg Tablet 50 MG PO BID to TID PRN PRN For Pain (Reported ) Followup Plan Disposition: Home Patient Instructions You were hospitalized to due to C. difficile colitis. Please continue metronidazole 500 mg by mouth 3 times a day for 5 more days. Follow-up with PCP in: 1 week Time spent 35 minutes coordinating discharge and counseling patient Ezequiel Ahmadi MD Dec 15, 2016 13:14
== END 2016-12-15 12:40 | disposition home or self-care (01) | DRG 872 ==
LOC: SED 13:33 → OSC 20:23
PROVIDERS: ADMIT Hospitalist; ATTEND Internal Medicine
DX: A41.9 Sepsis, unspecified organism (principal); A04.7 Enterocolitis due to Clostridium difficile; N17.9 Acute kidney failure, unspecified; E87.2 Acidosis; Z87.440 Personal history of urinary (tract) infections; E87.6 Hypokalemia; I10 Essential (primary) hypertension; F03.90 Unspecified dementia, unspecified severity, without behavioral disturbance, psychotic disturbance, mood disturbance, and anxiety; G47.00 Insomnia, unspecified; G25.81 Restless legs syndrome; K21.9 Gastro-esophageal reflux disease without esophagitis